=== PATIENT | male | born 1940 | race Caucasian/White ===

== ENCOUNTER 2023-07-09 18:50 | Emergency (ER) | payer MEDICARE ==
[2023-07-09] MEDS ORDERED: Sodium Chloride 0.9% 10 ML Syringe FLUSH PRN (19:10)
[2023-07-09 19:17] LABS: BASOPHILS ABSOLUTE AUTO 0.01 10^3/uL (0.00-0.10); BASOPHILS PERCENT AUTO 0.1 % (0.0-1.0); HEMATOCRIT 44.7 % (40.0-52.0); HEMOGLOBIN 15.4 g/dL (13.0-17.0); IMMATURE GRAN ABSOLUTE AUTO 0.05 10^3/uL (0.00-0.50); IMMATURE GRAN PERCENT AUTO 0.4 % (0.0-5.0); LYMPHOCYTES ABSOLUTE AUTO 0.99 10^3/uL (1.00-4.00); MEAN CORPUSCULAR HEMOGLOBIN 31.1 pg (27.0-31.0); MEAN CORPUSCULAR HGB CONC 34.5 g/dL (32.0-36.0); MEAN CORPUSCULAR VOLUME 90.3 fL (82.0-92.0); MEAN PLATELET VOLUME 11.1 fL (7.4-10.4); MONOCYTES ABSOLUTE AUTO 0.66 10^3/uL (0.10-0.80); MONOCYTES PERCENT AUTO 4.7 % (2.0-8.0); NEUTROPHILS PERCENT AUTO 87.8 % (50.0-70.0); PLATELET COUNT,PLT 143 10^3/uL (150-400); RED BLOOD CELL COUNT 4.95 10^6/uL (4.50-6.00); RED CELL DISTRIBUTION WIDTH 12.8 % (11.5-14.5); WHITE BLOOD CELL COUNT,WBC 14.11 10^3/uL (5.00-10.00)
[2023-07-09] MEDS: HYDROmorphone 1 MG/ML Syringe IVPUSH ONE ×2 (19:18→19:26)
[2023-07-09] MEDS: Sodium Chloride 0.9% 1,000 ML IV ONE (19:26)
[2023-07-09] MEDS: Ondansetron 4 MG/2 ML SDV IVPUSH ONE ×3 (19:28→20:39)
[2023-07-09] MEDS: Ondansetron 4 MG/2 ML SDV ONE (19:28)
[2023-07-09] MEDS: HYDROmorphone 1 MG/ML Syringe ONE (19:28)
[2023-07-09 19:32] LABS: ALANINE AMINOTRANSFERASE,ALT 30 U/L (14-63); ALBUMIN 3.84 g/dL (3.40-5.00); ALKALINE PHOSPHATASE 62 U/L (46-116); ANION GAP 17.8 mmol/L (5-15); ASPARTATE AMNIOTRANSFERASE,AST 36 U/L (15-37); BILIRUBIN TOTAL 1.7 mg/dL (0.2-1.0); BLOOD UREA NITROGEN,BUN 12 mg/dL (7-18); CALCIUM 8.8 mg/dL (8.7-10.3); CARBON DIOXIDE,CO2 24.5 mmol/L (21.0-32.0); CHLORIDE,CL 99 mmol/L (98-107); CREATININE 0.79 mg/dL (0.51-1.17); ESTIMATED GFR 89 mL/min (>=60); GLUCOSE RANDOM 147 mg/dL (70-140); POTASSIUM,K 4.3 mmol/L (3.5-5.1); PROTEIN TOTAL,TP 7.4 g/dL (6.4-8.2); SODIUM,NA 137 mmol/L (136-145)
[2023-07-09 19:40] LABS: PTT,PARTIAL THROMBOPLSTIN TIME 23.4 SEC (22.8-31.4)
[2023-07-09 20:12] LABS: APPEARANCE,URINE CLEAR (CLEAR); BILIRUBIN,URINE NEGATIVE (NEGATIVE); COLOR,URINE YELLOW (YELLOW); GLUCOSE,URINE NEGATIVE (NEGATIVE); KETONES,URINE 80 mg/dL (NEGATIVE); LEUKOCYTE ESTERASE,URINE NEGATIVE (NEGATIVE); NITRITE,URINE NEGATIVE (NEGATIVE); OCCULT BLOOD,URINE TRACE-INTACT (NEGATIVE); PROTEIN,URINE 30 mg/dL (NEGATIVE)
[2023-07-09 20:13] LABS: BACTERIA,URINE RARE /HPF (NONE TO FEW); EPITHELIAL CELLS,URINE RARE /LPF; WBC,URINE 0-5 /HPF (0-5)
[2023-07-09] MEDS: LORazepam 2 MG/ML SDV IVPUSH ONE (20:45)
[2023-07-09] MEDS: Metoclopramide 10 MG/2 ML SDV IVPUSH ONE (21:02)
[2023-07-09] MEDS: Metoclopramide 10 MG/2 ML SDV ONE (21:02)
[2023-07-09] MEDS: Sodium Chloride 0.9% 1,000 ML IV SCH (21:03)
[2023-07-09] MEDS: Sodium Chloride 0.9% 1,000 ML ONE (21:27)
== END 2023-07-09 21:00 ==
LOC: KA.ED 18:50
DX: S06.5XAA Traumatic subdural hemorrhage with loss of consciousness status unknown, initial encounter (principal); S52.202A Unspecified fracture of shaft of left ulna, initial encounter for closed fracture; S62.511A Displaced fracture of proximal phalanx of right thumb, initial encounter for closed fracture; S22.32XA Fracture of one rib, left side, initial encounter for closed fracture; S12.110A Anterior displaced Type II dens fracture, initial encounter for closed fracture; S12.200A Unspecified displaced fracture of third cervical vertebra, initial encounter for closed fracture; S12.500A Unspecified displaced fracture of sixth cervical vertebra, initial encounter for closed fracture; S12.600A Unspecified displaced fracture of seventh cervical vertebra, initial encounter for closed fracture; R00.0 Tachycardia, unspecified; F10.90 Alcohol use, unspecified, uncomplicated; I10 Essential (primary) hypertension; W17.89XA Other fall from one level to another, initial encounter
CPT/HCPCS: 70450; 71045; 72125; 72170; 73070; 73090; 73130; 80053; 81001; 84484; 85025; 85610; 85730; 93005; 96361; 96374; 96375; 96376; 99291; G0390; J1170; J2060; J2405; J2765; J7030; Q3014; 93010; 99285